=== PATIENT | female | born 1995 | race Caucasian/White ===

== ENCOUNTER 2019-11-04 09:20 | Emergency (ER) | payer OTHER ==
[~2019-11-04] VITALS: Ht 154.9 cm; Wt 48.6 kg
[2019-11-04] MEDS ORDERED: SPIR50 PO (09:54)
[2019-11-04] MEDS ORDERED: TRANEXAMIC ACID 1,000 MG in DEXTROSE 5%-WATER 50 ML IV ONE (10:00)
[2019-11-04 10:15] LABS: HEMATOCRIT 26.4 % (36-46); HEMOGLOBIN 8.9 g/dL (12.0-16.0)
[2019-11-04] MEDS ORDERED: ONDANSETRON HCL 4 MG/2 ML VIAL IVP ONE (12:30)
[2019-11-04] MEDS ORDERED: KETOROLAC TROMETHAMINE 30 MG/ML VIAL IVP ONE (12:30)
[2019-11-04] MEDS ORDERED: ACETAMINOPHEN/CODEINE 300-30 MG TABLET PO ONE (12:30)
[2019-11-04 12:51] VITALS: BP 98/60
== END 2019-11-04 12:50 | disposition home or self-care (01) ==
LOC: EMS 09:21
DX: N83.201 Unspecified ovarian cyst, right side (principal); K66.1 Hemoperitoneum
CPT/HCPCS: 36415; 85014; 85018; 86850; 86900; 86901; 86923; 96374; 96375; 99284; J1885; J2405; J3490; J7060